=== PATIENT | female | born 1990 | race Two or more races ===

== ENCOUNTER 2017-06-09 19:48 | Emergency (ER) | payer MEDICAID ==
[~2017-06-09] VITALS: Ht 177.8 cm; Wt 68.0 kg
[2017-06-09 20:50] VITALS: BP 141/98
[2017-06-09] MEDS ORDERED: predniSONE 20 MG TABLET ONE (20:53)
[2017-06-09] MEDS ORDERED: predniSONE 20 MG TABLET PO ONE (21:00)
== END 2017-06-09 21:00 | disposition home or self-care (01) ==
LOC: ER 19:54
DX: R21 Rash and other nonspecific skin eruption (principal)
CPT/HCPCS: A4606; Z7610